=== PATIENT | female | born 1980 | race Caucasian/White ===

== ENCOUNTER 2018-01-30 20:39 | Emergency (ER) | payer OTHER ==
[~2018-01-30] VITALS: Ht 167.6 cm; Wt 99.8 kg
[~2018-01-30 20:39] MED LIST: LORA-258
--- NOTE | 2018-01-30 20:39 | NUR ---
BIBSELF C/O "SUDDEN CHEST PRESSURE, SOMETHING IS HAPPENING INSIDE OF ME" HX OF LAP BAND 2004, +N/V SINCE AFTERNOON PT NOTED ANXIOUS. NO SOB AT THIS TIME. VSS NAD. WILL CONTINUE TO MONITOR FOR ANY CHANGES DURING THE SHIFT
[2018-01-30] MEDS ORDERED: IV NS 0.9% 1,000 ML BAG IV ONE (22:00)
--- NOTE | 2018-01-30 22:00 | NUR ---
SHANEL AT BEDSIDE
[2018-01-30 22:14] LABS: BASOPHILS % (AUTO) 0.3 % (0.0-2.0); EOSINOPHILS # (AUTO) 0.1 /CMM (0.0-0.7); HEMATOCRIT 37 % (33-45); HEMOGLOBIN 12.7 g/dL (11.5-14.8); LYMPHOCYTES # (AUTO) 1.5 /CMM (0.8-4.8); LYMPHOCYTES % (AUTO) 16.7 % (20.0-44.0); MEAN CORPUSCULAR HEMOGLOBIN 29 PG (26.0-33.0); MEAN CORPUSCULAR HGB CONC 35 g/dl (31.0-36.0); MEAN CORPUSCULAR VOLUME 82 fL (82-100); MONOCYTES # (AUTO) 0.4 /CMM (0.1-1.30); MONOCYTES % (AUTO) 4.5 % (2.0-12.0); NEUTROPHILS % (AUTO) 77.5 % (43.0-81.0); PLATELET COUNT (AUTO) 229 /CMM (150-450); RDW COEFFICIENT OF VARIATION 14.1 (11.5-15.0); RED BLOOD CELL COUNT(AUTO) 4.45 MIL/uL (4.0-5.2)
--- NOTE | 2018-01-30 22:20 | NUR ---
AWAITING FOR CT SCAN PICKUP
[2018-01-30 22:23] LABS: APPEARANCE,URINE CLEAR (CLEAR); BILIRUBIN,URINE NEGATIVE (NEGATIVE); BLOOD, URINE NEGATIVE Ery/uL (NEGATIVE); KETONES,URINE NEGATIVE (NEGATIVE); LEUKOCYTE ESTERASE ,URINE NEGATIVE (NEGATIVE); NITRITE, URINE NEGATIVE (NEGATIVE); PROTEIN,URINE NEGATIVE (NEGATIVE); UGLUCOSE NEGATIVE (NEGATIVE); UROBILINOGEN,URINE 0.2 EU/dL (0.2)
[2018-01-30 22:24] LABS: CALCIUM, SERUM 9.5 mg/dL (8.5-10.1); CREATININE 0.9 mg/dL (0.6-1.3); POTASSIUM 3.4 mmol/L (3.5-5.1)
[2018-01-30 22:30] LABS: ALBUMIN 4.2 g/dL (3.4-5.0); BILIRUBIN,DIRECT 0.1 mg/dL (0.0-0.2); BILIRUBIN,TOTAL 0.3 mg/dL (0.2-1.0); TOTAL PROTEIN, SERUM 7.6 g/dL (6.4-8.2)
--- NOTE | 2018-01-30 22:30 | NUR ---
PT OFF TO CT SCAN
[2018-01-30 22:32] LABS: COLOR,URINE OTHER (YELLOW)
--- NOTE | 2018-01-30 22:45 | NUR ---
BACK FROM CT
[2018-01-30] MEDS ORDERED: POTASSIUM CHLORIDE 20 MEQ TAB.PRT.SR PO ONE ×2 (23:00→23:08)
[2018-01-31 00:49] VITALS: BP 131/86
== END 2018-01-31 00:54 | disposition home or self-care (01) ==
LOC: ER 20:42
DX: F41.0 Panic disorder [episodic paroxysmal anxiety] (principal); R11.2 Nausea with vomiting, unspecified; K21.9 Gastro-esophageal reflux disease without esophagitis; K44.9 Diaphragmatic hernia without obstruction or gangrene; Z98.84 Bariatric surgery status
CPT/HCPCS: 36415; 74176; 80048; 80076; 81001; 83690; 84703; 85025; 93005; 96360; 99285; A4606; J7030; Z7610; 81000-TC